=== PATIENT | male | born 2005 ===

== ENCOUNTER 2023-01-13 09:37 | Outpatient (REF) | payer SELFPAY ==
[2023-01-15 23:53] LABS: TS Negative Control Passed; TS Panel A 2; TS Panel B 1; TS Positive Control Passed; TSpotTB Negative (Negative)
== END 2023-01-13 09:38 | disposition home or self-care (01) ==
LOC: HO.HSH 09:37
PROVIDERS: Visit Provider Internal Medicine
DX: Z02.1 Encounter for pre-employment examination (principal); Z11.1 Encounter for screening for respiratory tuberculosis
CPT/HCPCS: 36415; 86481